=== PATIENT | female | born 1945 | race Caucasian/White ===

== ENCOUNTER 2016-10-14 05:38 | Inpatient (IN) ==
[2016-10-07 11:50] LABS: Basophils # 0.1 10*3/uL (0.0-0.2); Basophils % 1.4 % (0.0-0.8); Eosinophils # 0.1 10*3/uL (0.0-0.87); Eosinophils % 2.6 % (0.00-10.9); Hematocrit 39.4 VOL% (35.7-47.0); Immature Granulocytes % 0.2 %; Immature Granulocytes Absolute 0.01 #; Lymphocytes # 1.5 10*3/uL (1.4-4.0); Mean Corpuscular Hemoglobin 30 PG (27-34); Mean Corpuscular Volume 90.8 FL (87-102); Mean Platelet Volume 10.1 FL (9.6-12.0); Monocytes # 0.5 10*3/uL (0.11-0.8); Monocytes % 9.3 % (1.7-12.7); Neutrophils # 2.9 10*3/uL (1.4-7.4); Neutrophils % 56.5 % (38.7-73.9); Platelet Count 253 T/CUMM (130-400); Red Blood Count 4.34 MC/CUMM (3.8-5.5); Red Cell Distribution Width 12.1 % (9.3-17.3)
[2016-10-07 11:51] LABS: Apearance,Urine CLEAR (Clear); Bilirubin,Urine Negative (Negative); Blood, Urine Negative (Negative); Glucose,Urine (UA) Negative (Negative); Ketones,Urine Negative (Negative); Nitrite,Urine Negative (Negative); Protein,Urine Negative; RBC,Urine <1 /HPF (0-4); Squamous Epithelial Cell,Urine Occasional /HPF (0-10); Transitional Epi Cells,Urine Occasional /HPF (<1); Urine Color Straw (Yellow); Urine Specific Gravity 1.003 (1.001-1.035); Urine Urobilinogen < 2.0 EU/DL (0.2-1.0); WBC,Urine 2 /HPF (0-6)
--- NOTE | 2016-10-07 11:58 | EKG Report ---
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
[2016-10-07 12:25] LABS: Albumin 3.7 G/DL (3.4-5.0); Bilirubin,Total 1.1 MG/DL (0.2-1.0); Calcium 8.9 MG/DL (8.5-10.1); Osmolality,Calculated 271.8 MOS/KG (273-304); Total Protein 7.8 G/DL (6.4-8.3)
[2016-10-07 12:30] LABS: PT Patient Result 10.2 SECS; Partial Thromboplastin Time 25.7 SECS (0-40)
--- NOTE | 2016-10-07 13:56 | XRay Report ---
2 view chest. Indication: Respiratory preoperative. The heart is normal in size. The pulmonary vasculature is normal. Calcified granuloma in the right upper lung field. No pneumothorax. No pleural effusion. Exaggerated kyphosis of the thoracic spine. Stable anterior wedging of mid thoracic vertebra. Degenerative changes of the spinal column and shoulders. Impression: No acute abnormality. PROCEDURE INTERPRETED AT [facility] DEPARTMENT OF RADIOLOGY Final Report Signed by: Dr. Shannon Gilman
[2016-10-14] MEDS ORDERED: VANCOMYCIN INJ 1,000 MG in SODIUM CHLORIDE 0.9% 250 ML IV ONE ×2 (06:00→21:30)
[2016-10-14] MEDS ORDERED: DIAZEPAM 5 MG TABLET PO ONE (06:52)
[2016-10-14] MEDS ORDERED: ceFAZolin 1,000 MG VIAL ONE (07:22)
[2016-10-14] MEDS ORDERED: VANCOMYCIN 1,000 MG VIAL ONE (07:22)
[2016-10-14] MEDS ORDERED: DIAZEPAM 5 MG TABLET ONE (07:23)
[2016-10-14] MEDS ORDERED: SODIUM CHLORIDE 0.9% 100 ML IV ONE (07:23)
[2016-10-14] MEDS: LACTATED RINGERS 1,000 ML IV SCH ×4 (08:25→21:22)
--- NOTE | 2016-10-14 08:54 | History and Physical Update ---
History and Physical Update - History and Physical H&P was reviewed, the patient examined and there: are no changes in the patients condition since last H&P was completed.
[2016-10-14] MEDS ORDERED: KETOROLAC 30 MG/1 ML VIAL ONE (09:10)
[2016-10-14] MEDS ORDERED: PROPOFOL 200 MG/20 ML VIAL IV ONE (09:10)
[2016-10-14] MEDS ORDERED: LIDOCAINE 2% 5 ML VIAL ONE (09:10)
[2016-10-14] MEDS ORDERED: PHENYLEPHRINE 1 MG/10 ML SYRINGE IV ONE (09:10)
[2016-10-14] MEDS ORDERED: ONDANSETRON 4 MG/2 ML VIAL ONE (09:10)
[2016-10-14] MEDS ORDERED: TRANEXAMIC ACID 1,000 MG/10 ML VIAL IV ONE (09:31)
[2016-10-14] MEDS ORDERED: ROPIVACAINE 0.5% 30 ML VIAL ONE (10:41)
[2016-10-14] MEDS ORDERED: BACITRACIN OINT 0.9 GM PACK TOP ONE (10:49)
[2016-10-14] MEDS ORDERED: MORPHINE 2 MG/1 ML SYRINGE IV PRN ×2 (11:00)
[2016-10-14] MEDS ORDERED: oxyCODONE IR 5 MG TABLET PO PRN (11:00)
[2016-10-14] MEDS ORDERED: diphenhydrAMINE CAP 25 MG CAPSULE PO PRN (11:00)
[2016-10-14] MEDS ORDERED: MAGNESIUM HYDROXIDE SUSP 30 ML UDCUP PO PRN (11:00)
--- NOTE | 2016-10-14 11:04 | Operative Note ---
Date of procedure: 10/14/16 Procedure: DIAGNOSIS: Left knee primary osteoarthrosis PROCEDURE: Left total knee arthroplasty (cpt #93901) SURGEON: Khurram FRIT COATER: Jenifer ANESTHESIA: Spinal with a postoperative adductor canal block PROCEDURE and FINDINGS: After adequate was induced, the patient's knee was prepped and draped in the usual sterile fashion. The limb was exsanguinated with Esmarch. Tourniquet was inflated to 300 mmHg. A median parapatellar approach was made. Femur was cut using an intramedullary guide and a 4 in 1 cutting jig in 5 degrees of valgus. ACL and menisci were excised. Tibia was cut using intramedullary guide. Patella was cut using freehand technique. Components were trialed. Tibial fin was prepared. Components are cemented in place using Palacos cement and modern cementing techniques. Cement was removed. A 1/8 inch Hemovac drain was placed. The knee was well-balanced and full range of motion with central tracking patella. Deep layers closed with 0-0 Vicryl. Superficial layers were closed with 2-0 and 3-0 Vicryl. Skin was approximated with corrine. Bacitracin and a sterile dressing was applied. Patient was transferred to recovery. A postoperative adductor canal block is anticipated. COMPONENTS: The [employer] Persona system was used. 9 CR femur, F natural tibia, 10 mm liner, 32 mm patella TOURNIQUET TIME: 33 minutes Surgeon / Physician: Berhane Paulson Jr. Results - Labs CBC & BMP: 10/07/16 11:36 10/07/16 11:36 Discharge Plan - Discharge Medications No Action Levothyroxine Tab [Synthroid Tab] 75 mcg PO DAILY@0700 Atorvastatin [Lipitor] 1 tablet PO BEDTIME Multivitamin [One Daily Multivitamin] 1 tablet PO DAILY Cholecalciferol (Vitamin D3) [Vitamin D3] 1 tablet PO DAILY Fluticasone 50 Mcg Nasal [place] [Flonase Nasal [place]] 2 spray BOTH NARES DAILY Aspirin [Ecotrin] 81 mg PO BEDTIME Duloxetine HCl [Cymbalta] 60 mg PO DAILY Losartan Potassium [Cozaar] 50 mg PO BID Calcium (Carb)/Vit D 600-400 [Caltrate 600 + D] 1 tablet PO DAILY cycloSPORINE OPH EMUL [Restasis] 1 drop BOTH EYES Q12HR Cetirizine HCl [ZyrTEC Cap] 10 mg PO DIRECTED Cyclobenzaprine [Flexeril] 5 mg PO BEDTIME Folic Acid 0.8 mg PO DAILY Etanercept [Enbrel] 60 mg SUBCUT Q7DAY - Follow Up or Referral - Forms/Instructions
[2016-10-14] MEDS ORDERED: MIDAZOLAM 2 MG/2 ML VIAL ONE (11:15)
[2016-10-14] MEDS ORDERED: fentaNYL 100 MCG/2 ML VIAL ONE (11:16)
[2016-10-14] MEDS ORDERED: NEOSTIGMINE 10 MG/10 ML VIAL ONE (11:16)
[2016-10-14] MEDS ORDERED: ACETAMINOPHEN 1,000 MG/100 ML VIAL IV ONE (11:16)
--- NOTE | 2016-10-14 12:16 | XRay Report ---
XR knee 2V LT Indication: Joint replacement (left knee) Comparison: No relevant comparison Technique: Frontal and lateral views of the left knee Findings: Status post total left knee arthroplasty. No evidence of immediate hardware failure. Superficial skin corrine and surgical drain/s overlie the knee. Subcutaneous and joint space air noted which is likely postoperative. IMPRESSION: Status post total left knee arthroplasty. PROCEDURE INTERPRETED AT [facility] DEPARTMENT OF RADIOLOGY Final Report Signed by: Dr Landon Williamson
[2016-10-14] MEDS: KETOROLAC 15 MG/1 ML VIAL IV SCH ×2 (14:46→19:10)
--- NOTE | 2016-10-14 15:30 | Cardiology Consult Note ---
Denver Quigley Vanessa, RN, am scribing for, and in the presence of, Bob Silva MD 15:29. Assessment and Plan - Time spent with patient Time spent with patient: Greater than 30 minutes (1) Status post left knee replacement Status: Acute Assessment and plan: Status post left knee right replacement per Dr. Paulson this morning. She is doing well immediately postoperatively. Current Visit: Yes (2) Hx of coronary artery disease Status: Chronic Assessment and plan: Percutaneous coronary intervention of left anterior descending artery with stent placement in October 2009. Clinically, she is doing well from a cardiac standpoint. Current Visit: Yes (3) Hypertension Status: Chronic Assessment and plan: Fairly well controlled at this time. Antihypertensives have been continued perioperatively. Current Visit: Yes (4) Dyslipidemia Status: Chronic Assessment and plan: Atorvastin is tolerable, and statin has been continued. Current Visit: Yes (5) Carotid artery disease Status: Chronic Assessment and plan: Per previous carotid ultrasound, patient with known history of bilateral carotid artery stenosis less than 50%. She is clinically asymptomatic. Current Visit: Yes Qualifiers: Laterality: bilateral Qualified Code(s): I77.9 - Disorder of arteries and arterioles, unspecified (6) Hypothyroidism Status: Chronic Assessment and plan: Thyroid supplement has been continued. Current Visit: Yes History of Present Illness - Data of Consult Patient: known to practice within the last 3 years Consult date: 10/14/16 Requesting Physician: Berhane Paulson Jr. 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 Daniel is a 71 year old white female with risk factors significant for: hypertension, dyslipidemia, previous personal history of coronary artery disease. Patient has never smoked. Previous percutaneous coronary intervention with stent placement of left anterior descending artery in October 2009. Past medical history includes hypothyroidism, bilateral carotid stenosis, and Raynaud 's syndrome. Last seen by Dr. Valverde in clinic on September 10. Patient had multiple complaints of at time of visit, but they were all noncardiac. Noted to have past statin intolerance and cough while on CHAD inhibitor. Most recent myocardial perfusion March 2016 showing small fixed perfusion abnormality of mild intensity in the apical segment but no acute ischemia, EKG changes, and was low risk for future cardiovascular events. Will think left ventricle with normal global function and ejection fraction 55%. EKG with normal sinus rhythm. She presented to [facility] earlier this morning for planned total left knee replacement. Procedure was uneventful, and cardiology has now been consulted for perioperative management. Patient seen and examined. She is still slightly drowsy from anesthesia, but pleasant and in no acute distress. Denies chest pain, shortness of breath, or other anginal complaint. Reports her Cozaar 100 mg dosage was adjusted to 50 mg twice daily during her last visit with Dr. Valverde, and she feels much less fatigued. She is not experiencing a significant amount of pain. Biggest complaint is of some hiccups she is having right now. BP 131/74, pulse regular. Current Medications Acetaminophen (Tylenol Tab) 1,000 mg PO Q6H DIANELYS Stop: 10/15/16 09:02 Hydrocodone Bitart/Acetaminophen ([place] 7.5-325) 1 tablet PO Q4H PRN PRN Reason: Pain Moderate (4-7) Hydrocodone Bitart/Acetaminophen ([place] 7.5-325) 2 tablet PO Q4H PRN PRN Reason: Moderate Pain unrelieved by 1 Atorvastatin Calcium (Lipitor) 20 mg PO BEDTIME [facility] Calcium/Vitamin D (Caltrate 600 + D) 1 tablet PO DAILY DIANELYS Celecoxib (Celebrex) 200 mg PO DAILY [facility] Cetirizine HCl (Zyrtec Tab) 10 mg PO DAILY PRN PRN Reason: ALLERGIES Cholecalciferol (Vitamin D3) 1,000 unit PO DAILY [facility] Cyclobenzaprine HCl (Flexeril) 5 mg PO BEDTIME [facility] Cyclosporine (Restasis) 1 drop BOTH EYES Q12HR DIAN[facility] Diphenhydramine HCl (Benadryl Cap) 25 mg PO Q6H PRN PRN Reason: Itching Docusate Sodium (Colace Cap) 100 mg PO BID [facility] Duloxetine HCl (Cymbalta) 60 mg PO DAILY [facility] Fluticasone Propionate (Flonase) 2 spray BOTH NARES DAILY [facility] Folic Acid () 0.8 mg PO DAILY DIAN[facility] Fondaparinux (Arixtra) 2.5 mg SUBCUT Q24H [facility] Cefazolin Sodium 1,000 mg/ (Sodium Chloride) 100 mls @ 200 mls/hr IV Q8H DIANELYS Stop: 10/15/16 02:29 Lactated Ringer's (Lr) 1,000 mls @ 100 mls/hr IV .Q10H [facility] Vancomycin HCl 1,000 mg/ (Sodium Chloride) 250 mls @ 250 mls/hr IV ONCE ONE Stop: 10/14/16 22:29 Iron/Multivitamins/Folic Acid (Centrum Tab) 1 tablet PO DAILY [facility] Ketorolac Tromethamine (Toradol Inj) 15 mg IV Q6H DIAN[facility] Stop: 10/15/16 06:41 Levothyroxine Sodium (Synthroid Tab) 75 mcg PO DAILY@0700 [facility] Losartan Potassium (Cozaar) 50 mg PO BID [facility] Magnesium Hydroxide (Milk Of Magnesia) 30 ml PO Q6H PRN PRN Reason: Constipation Morphine Sulfate () 2 mg IV Q3H PRN PRN Reason: Pain Severe (8-10) Morphine Sulfate () 4 mg IV Q3H PRN PRN Reason: Pain Severe (8-10) Ondansetron HCl (Zofran Inj) 4 mg IV Q4H PRN PRN Reason: Nausea/Vomiting Oxycodone HCl (Roxicodone) 10 mg PO Q4H PRN PRN Reason: Pain Moderate (4-7) Oxycodone HCl (Roxicodone) 5 mg PO Q4H PRN PRN Reason: Pain Mild (1-3) Zaleplon (Sonata) 10 mg PO BEDTIME PRN PRN Reason: Sleep CC: Berhane Paulson Jr., - Home Medications and Allergies Home Medications: Home Medications Medication Instructions Recorded Confirmed Type Aspirin [Ecotrin] 81 mg PO BEDTIME 10/07/16 10/14/16 History Atorvastatin [Lipitor] 20 mg PO BEDTIME 10/07/16 10/14/16 History Calcium (Carb)/Vit D 600-400 1 tablet PO DAILY 10/07/16 10/14/16 History [Caltrate 600 + D] Cetirizine HCl [ZyrTEC Cap] 10 mg PO DAILY PRN 10/07/16 10/14/16 History Cholecalciferol (Vitamin D3) 1,000 unit PO DAILY 10/07/16 10/14/16 History [Vitamin D3] Cyclobenzaprine [Flexeril] 5 mg PO BEDTIME 10/07/16 10/14/16 History Duloxetine HCl [Cymbalta] 60 mg PO DAILY 10/07/16 10/14/16 History Fluticasone 50 Mcg Nasal [place] 2 spray BOTH NARES DAILY 10/07/16 10/14/16 History [Flonase Nasal [place]] Folic Acid 0.8 mg PO DAILY 10/07/16 10/14/16 History Levothyroxine Tab [Synthroid Tab] 75 mcg PO DAILY@0700 10/07/16 10/14/16 History Losartan Potassium [Cozaar] 50 mg PO BID 10/07/16 10/14/16 History Multivitamin [One Daily 1 tablet PO DAILY 10/07/16 10/14/16 History Multivitamin] cycloSPORINE OPH EMUL [Restasis] 1 drop BOTH EYES Q12HR 10/07/16 10/14/16 History Etanercept [Enbrel] 60 mg SUBCUT Q7DAY 10/14/16 10/14/16 History Allergies/Adverse Reactions: Allergies Allergy/AdvReac Type Severity Reaction Status Date / Time doxycycline Allergy Severe RASH Verified 10/14/16 07:41 animals Allergy Severe Sneezing Uncoded 10/14/16 07:41 trees grass Allergy Severe Sneezing Uncoded 10/14/16 07:41 - Constitutional Constitutional: Absent: anorexia, chills, fatigue, fever(s), lethargy, weakness , weight gain, weight loss - EENT Eyes: Absent: blurry vision, loss of vision Ears: Absent: decreased hearing Nose, mouth and throat: Present: sinus pressure. Absent: dysphagia, epistaxis, lip swelling, nasal congestion, sore throat, throat swelling, tongue swelling - Cardiovascular Cardiovascular: Absent: chest pain at rest, chest pain with activity, diaphoresis, dyspnea, dyspnea on exertion, edema, radiating jaw, neck or arm pain, lightheadedness, orthopnea, palpitations, PND - Respiratory Respiratory: Absent: cough, dyspnea, hemoptysis, dyspnea on exertion, wheezing - Gastrointestinal Gastrointestinal: Absent: abdominal pain, bloating, constipation, diarrhea, dysphagia, melena, nausea, vomiting - Genitourinary Genitourinary: Absent: dysuria, flank pain, hematuria - Musculoskeletal Musculoskeletal: Present: arthralgias, limited range of motion, myalgias. Absent: back pain - Neurological Neurological: Absent: abnormal gait, abnormal speech, confusion, dizziness, syncope, tremor(s) - Psychiatric Psychiatric: Absent: anxiety, depression - Endocrine Endocrine: Absent: cold intolerance, heat intolerance - Hematologic/Lymphatic Hematologic/Lymphatic: Absent: easy bleeding, easy bruising Medical,Surgical,& Family Hx - Medical History Cardio: History of: CAD, Hypertension No history of: Cardiac Dysrhythmia, CHF, MT, Pacemaker, PVD Comment Only: Cardiovascular Problems (CAROTID BRUITT) Psychological: History of: Depression HEENT: History of: Eye Problem (GLASSES), Glaucoma Endocrine: History of: Dyslipidemia, Thyroid Disorder No history of: Diabetes Mellitus (IDDM), Diabetes Mellitus (NIDDM) Respiratory: No history of: COPD, Obstructive Sleep Apnea, Pulmonary Hypertension Comment Only: Respiratory Problems (SPOT LUNG CHRONIC COUGH DUE TO ALLERGIES) Renal: No history of: Renal Failure Gastrointestinal: No history of: GERD, Hepatitis Musculoskeletal: Comment Only: Musculoskeletal Problems (ARTHRITIS OSTEOPENEA) Hematology: No history of: Anemia, Blood Transfusion Reaction Other: History of: Miscellaneous Medical Problems (Raynaud's disease) - Surgical History Cardiac Surgeries: Sugical HX of: Cardiac Catheterization (previous PCI - Dr. Kunz) Patient Denies: Internal Defibrillator HEENT Surgeries: Surgical HX of: Tonsilectomy & Adenoidectomy Reproductive Surgeries: Surgical HX of;: Dilation and Curettage Orthopedic Surgeries: Surgical HX of;: Total Knee Replacement (LEFT) - Family History Family History: Reports;: Family Diabetes (SON), Family Heart Disease (DAD), Family Hypertension (DAD), Family Stroke (MOM GP) - Social History Smoking Status: Never smoker Frequency of Alcohol Use: None Type of Drug Use: None Physical Examination Vital Signs Temp Pulse Resp BP Pulse Ox 97.4 F L 73 16 132/67 97 10/14/16 08:36 10/14/16 08:36 10/14/16 08:36 10/14/16 08:36 10/14/16 08:36 General: Present: No Apparent Distress HEENT: Present: PERRL, Normocephaly, Mucus Membranes Moist Neck: Present: Supple Neck, Midline Trachea, No Bruit Cardiac: Present: Reg Rate and Rhythm, No Murmur Lungs: Present: Clear Ascult./Percussion, Oxygen, No Wheeze, Rales, Rhonchi Neuro: Present: Weakness, Grossly Intact. Absent: Tingling, Resting Tremor, Essential Tremor Abdomen: Present: Soft, Active Bowel Sounds. Absent: Ascites, Tender, Firm Skin: Present: Clear. Absent: Rash, Suspicious Lesions Extremities: Present: No Clubbing, No Cyanosis, No Edema, Normal Upper Extr. Pulses (2+ bilaterally), Normal Lower Extr. Pulses (2+ bilaterally), Capillary Refill (normal), Other (left lower extremity with dry/intact surgical dressing; cooling mechanism in place.) Result/EKG - Labs CBC & BMP: 10/07/16 11:36 10/07/16 11:36 Lab Results: I have reviewed the past 24 hour labs Labs: Laboratory Results - last 24 hr 10/14/16 06:25 Blood Type O POSITIVE Antibody Screen Negative - EKG EKG results: interpreted by me, no acute changes EKG shows: sinus rhythm I, Bob Silva MD, personally performed the services described in this documentation, ascribed by Becky Goff RN in my presence, and it is both accurate and complete [id number] .
--- NOTE | 2016-10-14 16:24 | Anesthesia Post-Op ---
Anesthesia Post OP - Post Ansesthetic Evaluation Patient seen in post op: Yes Resp: within normal limits CV: within normal limits Mental: within normal limits Temp: within normal limits [id number]-[id number]: within normal limits Nausea and Vomiting: within normal limits Pain: within normal limits
[2016-10-14] MEDS: ACETAMINOPHEN 500 MG TABLET PO SCH ×2 (16:47→21:18)
--- NOTE | 2016-10-14 18:06 | Orthopedic Progress Note ---
Orthopedics - Subjective Interval history: Mrs. Daniel is relatively comfortable. The block appears only worked about 3 hours. Dressing is clean, dry and intact. Left lower extremities neurovascularly unchanged. Plan: Continue with postoperative orders. Exam - Constitutional Vitals: Period Temp Pulse Resp BP Sys/Luke Pulse Ox Last 24 Hr 97.4 F-97.8 F 68-81 16-20 93-138/51-85 94-100 Results - Labs CBC & BMP: 10/07/16 11:36 10/07/16 11:36
[2016-10-14] MEDS ORDERED: ZALEPLON 5 MG CAPSULE PO PRN (21:00)
[2016-10-14] MEDS: oxyCODONE IR 5 MG TABLET PO PRN (21:17)
[2016-10-14] MEDS: DOCUSATE SODIUM 100 MG CAPSULE PO SCH (21:18)
[2016-10-14] MEDS: LOSARTAN 50 MG TABLET PO SCH (21:18)
[2016-10-14] MEDS: ATORVASTATIN 20 MG TABLET PO SCH (21:18)
[2016-10-14] MEDS: cycloSPORINE OPH EMUL 1 VIAL BOTH EYES SCH (21:19)
[2016-10-14] MEDS: CYCLOBENZAPRINE 10 MG TABLET PO SCH (21:19)
[2016-10-15] MEDS: KETOROLAC 15 MG/1 ML VIAL IV SCH ×2 (00:42→06:40)
[2016-10-15] MEDS: oxyCODONE IR 5 MG TABLET PO PRN ×4 (02:43→16:19)
[2016-10-15] MEDS: ACETAMINOPHEN 500 MG TABLET PO SCH ×2 (02:44→08:45)
[2016-10-15 05:13] LABS: Basophils % 0.5 % (0.0-0.8); Eosinophils # 0.3 10*3/uL (0.0-0.87); Eosinophils % 3.5 % (0.00-10.9); Hematocrit 29.7 VOL% (35.7-47.0); Hemoglobin 9.7 GM/DL (12.0-16.0); Immature Granulocytes % 0.4 %; Immature Granulocytes Absolute 0.03 #; Lymphocytes # 1.6 10*3/uL (1.4-4.0); Lymphocytes % 20.3 % (21.3-54.2); Mean Corpuscular HGB Conc 32.7 GM/DL (32-36); Mean Corpuscular Hemoglobin 30 PG (27-34); Mean Corpuscular Volume 91.7 FL (87-102); Mean Platelet Volume 10.1 FL (9.6-12.0); Monocytes # 0.8 10*3/uL (0.11-0.8); Monocytes % 10.7 % (1.7-12.7); Neutrophils # 4.9 10*3/uL (1.4-7.4); Neutrophils % 64.6 % (38.7-73.9); Platelet Count 185 T/CUMM (130-400); Red Blood Count 3.24 MC/CUMM (3.8-5.5); Red Cell Distribution Width 12.3 % (9.3-17.3); White Blood Count 7.7 T/CUMM (4-12)
[2016-10-15 05:50] LABS: Calcium 7.7 MG/DL (8.5-10.1); Osmolality,Calculated 267.2 MOS/KG (273-304); Potassium 3.9 MMOL/L (3.5-5.1)
[2016-10-15] MEDS: LEVOTHYROXINE 75 MCG TABLET PO SCH (06:39)
--- NOTE | 2016-10-15 07:30 | Orthopedic Progress Note ---
Orthopedics - Subjective Interval history: Mrs Daniel slept poorly last night. Dressing dry. nv ok. Reassured patient that she should improve today. Routine day one instructions. Plan discharge home with . Exam - Constitutional Vitals: Period Temp Pulse Resp BP Sys/Luek Pulse Ox Last 24 Hr 97.4 F-98.3 F 68-84 16-20 93-138/51-85 94-100 Results - Labs CBC & BMP: 10/15/16 04:53 10/15/16 04:53
[2016-10-15] MEDS: LACTATED RINGERS 1,000 ML IV SCH (07:47)
[2016-10-15] MEDS: CALCIUM (CARBONATE)/VITAMIN D 600 MG-400 UNIT TABLET PO SCH (08:43)
[2016-10-15] MEDS: CHOLECALCIFEROL 1,000 UNIT TABLET PO SCH (08:43)
[2016-10-15] MEDS: DULoxetine 30 MG CAPSULE PO SCH (08:43)
[2016-10-15] MEDS: FOLIC ACID 0.4 MG TABLET PO SCH (08:43)
[2016-10-15] MEDS: MULTIVITAMIN (CENTRUM) TABLET PO SCH (08:44)
[2016-10-15] MEDS: LOSARTAN 50 MG TABLET PO SCH ×2 (08:44→20:31)
[2016-10-15] MEDS: DOCUSATE SODIUM 100 MG CAPSULE PO SCH ×2 (08:45→20:32)
[2016-10-15] MEDS: cycloSPORINE OPH EMUL 1 VIAL BOTH EYES SCH ×2 (08:46→20:32)
[2016-10-15] MEDS: FLUTICASONE 50 MCG NASAL SPRAY 16 GM BOTTLE BOTH NARES SCH (08:46)
[2016-10-15] MEDS: FONDAPARINUX 2.5 MG/0.5 ML SYRINGE SUBCUT SCH (08:46)
[2016-10-15] MEDS: ONDANSETRON 4 MG/2 ML VIAL IV PRN ×2 (08:52→16:20)
[2016-10-15] MEDS: CELECOXIB 200 MG CAPSULE PO SCH (12:00)
--- NOTE | 2016-10-15 13:57 | Cardiology Progress Note ---
Denver Quigley Vanessa, RN, am scribing for, and in the presence of, Bob Silva MD 13:57. Assessment and Plan - Time spent with patient Time spent with patient: Greater than 30 minutes (1) Status post left knee replacement Status: Acute Assessment and plan: POD #1 status post left knee right replacement per Dr. Paulson. Other than some nausea, patient continues to do well. Current Visit: Yes (2) Hx of coronary artery disease Status: Chronic Assessment and plan: Percutaneous coronary intervention of left anterior descending artery with stent placement in October 2009. Clinically, patient is doing well from cardiac standpoint. Current Visit: Yes (3) Hypertension Status: Chronic Assessment and plan: Fairly well controlled at this time. Continue antihypertensive medications. Current Visit: Yes (4) Dyslipidemia Status: Chronic Assessment and plan: History of statin intolerance. Currently takes atorvastatin, and this will continue. Current Visit: Yes (5) Carotid artery disease Status: Chronic Assessment and plan: Per previous carotid ultrasound, patient with known history of bilateral carotid artery stenosis less than 50%. She is not having any clinical symptoms. Current Visit: Yes Qualifiers: Laterality: bilateral Qualified Code(s): I77.9 - Disorder of arteries and arterioles, unspecified (6) Hypothyroidism Status: Chronic Assessment and plan: Thyroid supplement has been continued. Current Visit: Yes Cardiology - PN: Subj Interval history: PRIMARY CHAIRMAN CEO: DR. VALVERDE SUMMARY: Ms. Daniel is a 71 year old white female with risk factors significant for: hypertension, dyslipidemia, and personal history of coronary artery disease. Patient has never smoked. Previous percutaneous coronary intervention with stent placement of left anterior descending artery in October 2009. Past medical history includes hypothyroidism, bilateral carotid stenosis, and Raynaud's syndrome. Last seen by Dr. Valverde in clinic on September 10. Patient had multiple complaints of at time of visit, but they were all noncardiac. Noted to have past statin intolerance and cough while on CHAD inhibitor. Most recent myocardial perfusion March 2016 showing small fixed perfusion abnormality of mild intensity in the apical segment but no acute ischemia, EKG changes, and was low risk for future cardiovascular events. Will think left ventricle with normal global function and ejection fraction 55%. EKG with normal sinus rhythm. Patient presented to [facility] on the morning of October 14 for planned total left knee replacement. Cardiology was consulted for perioperative management. September UPDATE: Ms. Daniel is awake and alert this morning. No acute distress. Physical therapy is present assisting patient with range of motion exercises in bed. Patient reports she did not sleep well at all last night. She has not had any chest pain , shortness of breath, or other overt anginal complaint. Reports she did have some nausea earlier this morning but contributes this pain medications, restarting her Cymbala this morning, and increasing her activity level. Afebrile , vitals stable with systolic pressure ranging 120-135 mmHg. Post op H&H 9.7/ 29.7. K+ 3.9. Overall, from a cardiac standpoint, patient appears to be doing well. Current Medications Hydrocodone Bitart/Acetaminophen ([place] 7.5-325) 1 tablet PO Q4H PRN PRN Reason: Pain Moderate (4-7) Last Admin: 10/14/16 23:11 Dose: 1 tablet Hydrocodone Bitart/Acetaminophen ([place] 7.5-325) 2 tablet PO Q4H PRN PRN Reason: Moderate Pain unrelieved by 1 Atorvastatin Calcium (Lipitor) 20 mg PO BEDTIME [facility] Last Admin: 10/14/16 21:18 Dose: 20 mg Calcium/Vitamin D (Caltrate 600 + D) 1 tablet PO DAILY [facility] Last Admin: 10/15/16 08:43 Dose: 1 tablet Celecoxib (Celebrex) 200 mg PO DAILY [facility] Cetirizine HCl (Zyrtec Tab) 10 mg PO DAILY PRN PRN Reason: ALLERGIES Cholecalciferol (Vitamin D3) 1,000 unit PO DAILY [facility] Last Admin: 10/15/16 08:43 Dose: 1,000 unit Cyclobenzaprine HCl (Flexeril) 5 mg PO BEDTIME [facility] Last Admin: 10/14/16 21:19 Dose: 5 mg Cyclosporine (Restasis) 1 drop BOTH EYES Q12HR [facility] Last Admin: 10/15/16 08:46 Dose: 1 drop Diphenhydramine HCl (Benadryl Cap) 25 mg PO Q6H PRN PRN Reason: Itching Last Admin: 10/15/16 05:13 Dose: 25 mg Docusate Sodium (Colace Cap) 100 mg PO BID [facility] Last Admin: 10/15/16 08:45 Dose: 100 mg Duloxetine HCl (Cymbalta) 60 mg PO DAILY [facility] Last Admin: 10/15/16 08:43 Dose: 60 mg Fluticasone Propionate (Flonase) 2 spray BOTH NARES DAILY [facility] Last Admin: 10/15/16 08:46 Dose: 2 spray Folic Acid () 0.8 mg PO DAILY [facility] Last Admin: 10/15/16 08:43 Dose: 0.8 mg Fondaparinux (Arixtra) 2.5 mg SUBCUT Q24H [facility] Last Admin: 10/15/16 08:46 Dose: 2.5 mg Iron/Multivitamins/Folic Acid (Centrum Tab) 1 tablet PO DAILY [facility] Last Admin: 10/15/16 08:44 Dose: Not Given Levothyroxine Sodium (Synthroid Tab) 75 mcg PO DAILY@0700 [facility] Last Admin: 10/15/16 06:39 Dose: 75 mcg Losartan Potassium (Cozaar) 50 mg PO BID [facility] Last Admin: 10/15/16 08:44 Dose: 50 mg Magnesium Hydroxide (Milk Of Magnesia) 30 ml PO Q6H PRN PRN Reason: Constipation Morphine Sulfate () 2 mg IV Q3H PRN PRN Reason: Pain Severe (8-10) Morphine Sulfate () 4 mg IV Q3H PRN PRN Reason: Pain Severe (8-10) Ondansetron HCl (Zofran Inj) 4 mg IV Q4H PRN PRN Reason: Nausea/Vomiting Last Admin: 10/15/16 08:52 Dose: 4 mg Oxycodone HCl (Roxicodone) 10 mg PO Q4H PRN PRN Reason: Pain Moderate (4-7) Last Admin: 10/15/16 06:39 Dose: 10 mg Oxycodone HCl (Roxicodone) 5 mg PO Q4H PRN PRN Reason: Pain Mild (1-3) Zaleplon (Sonata) 10 mg PO BEDTIME PRN PRN Reason: Sleep Exam (Progress Note) - Constitutional Vitals: Period Temp Pulse Resp BP Sys/Luke Pulse Ox Last 24 Hr 97.5 F-98.3 F 68-84 16-20 93-138/51-85 94-100 Exam: General: Present: No Apparent Distress HEENT: Present: PERRL, Normocephaly, Mucus Membranes Moist Neck: Present: Supple Neck, Midline Trachea, No Bruit Cardiac: Present: Reg Rate and Rhythm, No Murmur Lungs: Present: Clear Ascult./Percussion, Oxygen, No Wheeze, Rales, Rhonchi Neuro: Present: Weakness, Grossly Intact. Absent: Tingling, Resting Tremor, Essential Tremor Abdomen: Present: Soft, Active Bowel Sounds. Absent: Ascites, Tender, Firm Skin: Present: Clear, warm, dry. Absent: Rash, Suspicious Lesions Extremities: Present: No Clubbing, No Cyanosis, No Edema, Normal Upper Extr. Pulses (2+ bilaterally), Normal Lower Extr. Pulses (2+ bilaterally), Capillary Refill (normal), Other (left knee with dry/intact surgical dressing) Result/EKG - Labs CBC & BMP: 10/15/16 04:53 10/15/16 04:53 Lab Results: I have reviewed the past 24 hour labs Labs: Laboratory Results - last 24 hr 10/15/16 10/15/16 04:53 04:53 WBC 7.7 RBC 3.24 L Hgb 9.7 L Hct 29.7 L MCV 91.7 MCH 30 MCHC 32.7 RDW 12.3 Plt Count 185 MPV 10.1 Neut % (Auto) 64.6 Lymph % (Auto) 20.3 L [place] % (Auto) 10.7 Eos % (Auto) 3.5 Baso % (Auto) 0.5 Neut # (Auto) 4.9 Lymph # (Auto) 1.6 [place] # (Auto) 0.8 Eos # (Auto) 0.3 Baso # (Auto) 0.0 Immature Gran % 0.4 Nucleated RBC % 0.0 Immature Gran # 0.03 Nucleated RBCs # 0.00 Sodium 134 L Potassium 3.9 Chloride 99 Carbon Dioxide 28 Anion Gap 10.9 BUN 9 Creatinine 0.60 GFR Calculation 99 BUN/Creatinine Ratio 15.00 Glucose 111 H Calculated Osmolality 267.2 L Calcium 7.7 L - EKG EKG results: interpreted by me, no acute changes EKG shows: sinus rhythm IShira Michael, MD, personally performed the services described in this documentation, ascribed by Becky Goff RN in my presence, and it is both accurate and complete 357 .
[2016-10-15] MEDS: CYCLOBENZAPRINE 10 MG TABLET PO SCH (20:31)
[2016-10-15] MEDS: ATORVASTATIN 20 MG TABLET PO SCH (20:31)
[2016-10-16] MEDS: CETIRIZINE 10 MG TABLET PO PRN (06:09)
[2016-10-16] MEDS: LEVOTHYROXINE 75 MCG TABLET PO SCH (06:10)
[2016-10-16 06:54] LABS: Basophils % 0.3 % (0.0-0.8); Eosinophils # 0.1 10*3/uL (0.0-0.87); Eosinophils % 1.4 % (0.00-10.9); Hematocrit 27.8 VOL% (35.7-47.0); Hemoglobin 9.2 GM/DL (12.0-16.0); Immature Granulocytes % 0.4 %; Immature Granulocytes Absolute 0.03 #; Lymphocytes # 1.3 10*3/uL (1.4-4.0); Lymphocytes % 16.3 % (21.3-54.2); Mean Corpuscular HGB Conc 33.1 GM/DL (32-36); Mean Corpuscular Hemoglobin 30 PG (27-34); Mean Platelet Volume 10.2 FL (9.6-12.0); Monocytes # 0.8 10*3/uL (0.11-0.8); Monocytes % 9.5 % (1.7-12.7); Neutrophils # 5.7 10*3/uL (1.4-7.4); Neutrophils % 72.1 % (38.7-73.9); Platelet Count 176 T/CUMM (130-400); Red Blood Count 3.09 MC/CUMM (3.8-5.5); Red Cell Distribution Width 12.3 % (9.3-17.3); White Blood Count 7.9 T/CUMM (4-12)
--- NOTE | 2016-10-16 07:25 | Orthopedic Progress Note ---
Orthopedics - Subjective Interval history: Mrs. Daniel is feeling better today. She was able to walk in the [place] short distance. Dressings clean, dry and intact. Right lower extremity neurovascular change. Plan: Continue with physical therapy. Plan discharge home tomorrow. Exam - Constitutional Vitals: Period Temp Pulse Resp BP Sys/Luke Pulse Ox Last 24 Hr 97.3 F-99.8 F 76-89 16-20 115-145/55-74 92-98 Results - Labs CBC & BMP: 10/16/16 06:31 10/15/16 04:53 Specialty Discharge - Follow Up or Referrals Follow up with: Berhane Paulson Jr., MD [Physician] -
[2016-10-16] MEDS: FONDAPARINUX 2.5 MG/0.5 ML SYRINGE SUBCUT SCH (08:21)
[2016-10-16] MEDS: MULTIVITAMIN (CENTRUM) TABLET PO SCH (08:22)
[2016-10-16] MEDS: DULoxetine 30 MG CAPSULE PO SCH (08:22)
[2016-10-16] MEDS: FOLIC ACID 0.4 MG TABLET PO SCH (08:22)
[2016-10-16] MEDS: DOCUSATE SODIUM 100 MG CAPSULE PO SCH ×2 (08:22→20:55)
[2016-10-16] MEDS: CELECOXIB 200 MG CAPSULE PO SCH (08:22)
[2016-10-16] MEDS: CALCIUM (CARBONATE)/VITAMIN D 600 MG-400 UNIT TABLET PO SCH (08:23)
[2016-10-16] MEDS: cycloSPORINE OPH EMUL 1 VIAL BOTH EYES SCH ×2 (08:23→20:57)
[2016-10-16] MEDS: CHOLECALCIFEROL 1,000 UNIT TABLET PO SCH (08:23)
[2016-10-16] MEDS: LOSARTAN 50 MG TABLET PO SCH ×2 (08:23→20:55)
[2016-10-16] MEDS: FLUTICASONE 50 MCG NASAL SPRAY 16 GM BOTTLE BOTH NARES SCH (08:23)
--- NOTE | 2016-10-16 12:18 | Pathology Report from [facility] ---
[facility] [place] : [id number] PATIENT NAME : Chanda Daniel ORDERING DR : NIKOLAY ARRIETA MD CLINICAL HX: Left knee osteoarthritis POST-OP DX: Same SPECIMEN INFO: Bone left knee GROSS DESCRIPTION: Received in formalin labeled CHANDA DANIEL & BONE LT KNEE are fragments of bone, cartilage and tissue measuring 12.2 x 16.8 cm. The articular surfaces are focally degenerative with an area of subchondral eburnation measuring 2.2 cm and areas of cartilage lipping. Collection Systems Modeler sections are submitted in one cassette following decalcification. DIAGNOSIS FOR CHANDA DANIEL: BONE LEFT KNEE, TOTAL REPLACEMENT: Osteoarthritis. COLLECTED DATE: 10/14/2016 [facility] [place] DATE: 10/16/2016 ELECTRONICALLY SIGNED BY: Kushal Alamo M.D. 10/16/2016 - 9:58:04 ANDREW
--- NOTE | 2016-10-16 14:16 | Cardiology Progress Note ---
I, Becky Goff RN, am scribing for, and in the presence of, Bob Silva MD 14:16. Assessment and Plan - Time spent with patient Time spent with patient: Greater than 30 minutes (1) Status post left knee replacement Status: Acute Assessment and plan: POD #2 status post left knee right replacement per Dr. Paulson. Nausea is much improved today. Current Visit: Yes (2) Hx of coronary artery disease Status: Chronic Assessment and plan: Percutaneous coronary intervention of left anterior descending artery with stent placement in October 2009. Clinically, patient is doing well from cardiac standpoint. I am going to drop off her case at this time. Please call me if I can be of further assistance. Current Visit: Yes (3) Hypertension Status: Chronic Assessment and plan: Fairly well controlled at this time. Continue antihypertensive medications. Current Visit: Yes (4) Dyslipidemia Status: Chronic Assessment and plan: History of statin intolerance. Currently takes atorvastatin, and this will continue. Current Visit: Yes (5) Carotid artery disease Status: Chronic Assessment and plan: Per previous carotid ultrasound, patient with known history of bilateral carotid artery stenosis less than 50%. She is not having any clinical symptoms. Current Visit: Yes Qualifiers: Laterality: bilateral Qualified Code(s): I77.9 - Disorder of arteries and arterioles, unspecified (6) Hypothyroidism Status: Chronic Assessment and plan: Thyroid supplement has been continued. Current Visit: Yes Cardiology - PN: Subj Interval history: PRIMARY STEM SHAPER: DR. VALVERDE SUMMARY: Ms. Daniel is a 71 year old white female with risk factors significant for: hypertension, dyslipidemia, and personal history of coronary artery disease. Patient has never smoked. Previous percutaneous coronary intervention with stent placement of left anterior descending artery in October 2009. Past medical history includes hypothyroidism, bilateral carotid stenosis, and Raynaud's syndrome. Last seen by Dr. Valverde in clinic on September 10. Patient had multiple complaints of at time of visit, but they were all noncardiac. Noted to have past statin intolerance and cough while on CHAD inhibitor. Most recent myocardial perfusion March 2016 showing small fixed perfusion abnormality of mild intensity in the apical segment but no acute ischemia, EKG changes, and was low risk for future cardiovascular events. Will think left ventricle with normal global function and ejection fraction 55%. EKG with normal sinus rhythm. Patient presented to [facility] on the morning of October 14 for planned total left knee replacement. Cardiology was consulted for perioperative management. September UPDATE: Patient is now post operative day #2 status post left knee replacement. She had a significant amount of nausea throughout the day yesterday, but reports she is feeling much better today and is currently eating an apple, drinking willie lakia. Pain related to surgical procedure relatively well controlled at this time. Patient reports she ambulated in the hallways with physical therapy yesterday, and she did not have any exertional chest pain, dyspnea, or anginal equivalent. Low-grade temp yesterday up to 99.8F is improved today and currently 98.2. Vitals otherwise stable with systolic pressure no greater than 145 mmHg. Plan is to continue physical therapy today and discharge home tomorrow with home health. Current Medications Hydrocodone Bitart/Acetaminophen ([place] 7.5-325) 1 tablet PO Q4H PRN PRN Reason: Pain Moderate (4-7) Last Admin: 10/16/16 02:05 Dose: 1 tablet Hydrocodone Bitart/Acetaminophen ([place] 7.5-325) 2 tablet PO Q4H PRN PRN Reason: Moderate Pain unrelieved by 1 Atorvastatin Calcium (Lipitor) 20 mg PO BEDTIME [facility] Last Admin: 10/15/16 20:31 Dose: 20 mg Calcium/Vitamin D (Caltrate 600 + D) 1 tablet PO DAILY [facility] Last Admin: 10/15/16 08:43 Dose: 1 tablet Celecoxib (Celebrex) 200 mg PO DAILY [facility] Last Admin: 10/15/16 12:00 Dose: 200 mg Cetirizine HCl (Zyrtec Tab) 10 mg PO DAILY PRN PRN Reason: ALLERGIES Last Admin: 10/16/16 06:09 Dose: 10 mg Cholecalciferol (Vitamin D3) 1,000 unit PO DAILY [facility] Last Admin: 10/15/16 08:43 Dose: 1,000 unit Cyclobenzaprine HCl (Flexeril) 5 mg PO BEDTIME [facility] Last Admin: 10/15/16 20:31 Dose: 5 mg Cyclosporine (Restasis) 1 drop BOTH EYES Q12HR [facility] Last Admin: 10/15/16 20:32 Dose: 1 drop Diphenhydramine HCl (Benadryl Cap) 25 mg PO Q6H PRN PRN Reason: Itching Last Admin: 10/15/16 05:13 Dose: 25 mg Docusate Sodium (Colace Cap) 100 mg PO BID [facility] Last Admin: 10/15/16 20:32 Dose: 100 mg Duloxetine HCl (Cymbalta) 60 mg PO DAILY [facility] Last Admin: 10/15/16 08:43 Dose: 60 mg Fluticasone Propionate (Flonase) 2 spray BOTH NARES DAILY [facility] Last Admin: 10/15/16 08:46 Dose: 2 spray Folic Acid () 0.8 mg PO DAILY [facility] Last Admin: 10/15/16 08:43 Dose: 0.8 mg Fondaparinux (Arixtra) 2.5 mg SUBCUT Q24H [facility] Last Admin: 10/15/16 08:46 Dose: 2.5 mg Iron/Multivitamins/Folic Acid (Centrum Tab) 1 tablet PO DAILY [facility] Last Admin: 10/15/16 08:44 Dose: Not Given Levothyroxine Sodium (Synthroid Tab) 75 mcg PO DAILY@0700 [facility] Last Admin: 10/16/16 06:10 Dose: 75 mcg Losartan Potassium (Cozaar) 50 mg PO BID [facility] Last Admin: 10/15/16 20:31 Dose: 50 mg Magnesium Hydroxide (Milk Of Magnesia) 30 ml PO Q6H PRN PRN Reason: Constipation Morphine Sulfate () 2 mg IV Q3H PRN PRN Reason: Pain Severe (8-10) Morphine Sulfate () 4 mg IV Q3H PRN PRN Reason: Pain Severe (8-10) Ondansetron HCl (Zofran Inj) 4 mg IV Q4H PRN PRN Reason: Nausea/Vomiting Last Admin: 10/15/16 16:20 Dose: 4 mg Oxycodone HCl (Roxicodone) 10 mg PO Q4H PRN PRN Reason: Pain Moderate (4-7) Last Admin: 10/15/16 16:19 Dose: 10 mg Oxycodone HCl (Roxicodone) 5 mg PO Q4H PRN PRN Reason: Pain Mild (1-3) Zaleplon (Sonata) 10 mg PO BEDTIME PRN PRN Reason: Sleep Last Admin: 10/15/16 20:32 Dose: 10 mg Exam (Progress Note) - Constitutional Vitals: Period Temp Pulse Resp BP Sys/Luke Pulse Ox Last 24 Hr 97.3 F-99.8 F 76-89 16-20 115-145/50-74 92-98 Exam: General: Present: No Apparent Distress HEENT: Present: PERRL, Normocephaly, Mucus Membranes Moist Neck: Present: Supple Neck, Midline Trachea, No Bruit Cardiac: Present: Reg Rate and Rhythm, No Murmur Lungs: Present: Clear Ascult./Percussion, Oxygen, No Wheeze, Rales, Rhonchi Neuro: Present: Weakness, Grossly Intact. Absent: Tingling, Resting Tremor, Essential Tremor Abdomen: Present: Soft, Active Bowel Sounds. Absent: Ascites, Tender, Firm Skin: Present: Clear, warm, dry. Absent: Rash, Suspicious Lesions. Other: Skin color improved today. Extremities: Present: No Clubbing, No Cyanosis, No Edema, Normal Upper Extr. Pulses (2+ bilaterally), Normal Lower Extr. Pulses (2+ bilaterally), Capillary Refill (normal), Other (left knee with dry/intact surgical dressing) Result/EKG - Labs CBC & BMP: 10/16/16 06:31 10/15/16 04:53 Lab Results: I have reviewed the past 24 hour labs Labs: Laboratory Results - last 24 hr 10/16/16 06:31 WBC 7.9 RBC 3.09 L Hgb 9.2 L Hct 27.8 L MCV 90.0 MCH 30 MCHC 33.1 RDW 12.3 Plt Count 176 MPV 10.2 Neut % (Auto) 72.1 Lymph % (Auto) 16.3 L [place] % (Auto) 9.5 Eos % (Auto) 1.4 Baso % (Auto) 0.3 Neut # (Auto) 5.7 Lymph # (Auto) 1.3 L [place] # (Auto) 0.8 Eos # (Auto) 0.1 Baso # (Auto) 0.0 Immature Gran % 0.4 Nucleated RBC % 0.0 Immature Gran # 0.03 Nucleated RBCs # 0.00 - EKG EKG results: interpreted by me, no acute changes Specialty Discharge - Follow Up or Referrals Follow up with: Berhane Paulson Jr., MD [Physician] - Shira Quigley Michael, MD, personally performed the services described in this documentation, ascribed by Becky Goff RN in my presence, and it is both accurate and complete 416 .
[2016-10-16] MEDS: CYCLOBENZAPRINE 10 MG TABLET PO SCH (20:56)
[2016-10-16] MEDS: ATORVASTATIN 20 MG TABLET PO SCH (20:57)
[2016-10-17 04:51] LABS: Basophils % 0.4 % (0.0-0.8); Eosinophils # 0.3 10*3/uL (0.0-0.87); Eosinophils % 4.4 % (0.00-10.9); Hematocrit 27.8 VOL% (35.7-47.0); Hemoglobin 8.8 GM/DL (12.0-16.0); Immature Granulocytes Absolute 0.07 #; Lymphocytes # 1.3 10*3/uL (1.4-4.0); Lymphocytes % 17.5 % (21.3-54.2); Mean Corpuscular HGB Conc 31.7 GM/DL (32-36); Mean Corpuscular Hemoglobin 30 PG (27-34); Mean Corpuscular Volume 94.2 FL (87-102); Mean Platelet Volume 10.8 FL (9.6-12.0); Monocytes # 0.8 10*3/uL (0.11-0.8); Monocytes % 10.5 % (1.7-12.7); Neutrophils # 4.8 10*3/uL (1.4-7.4); Neutrophils % 66.2 % (38.7-73.9); Platelet Count 140 T/CUMM (130-400); Red Blood Count 2.95 MC/CUMM (3.8-5.5); Red Cell Distribution Width 12.4 % (9.3-17.3); White Blood Count 7.3 T/CUMM (4-12)
[2016-10-17] MEDS: LEVOTHYROXINE 75 MCG TABLET PO SCH (06:41)
[2016-10-17] MEDS: CETIRIZINE 10 MG TABLET PO PRN (06:43)
--- NOTE | 2016-10-17 07:23 | Discharge Summary ---
Hospital Course - Hospital Course Hospital Course: Mrs. Daniel was admitted after undergoing an uncomplicated left total knee replacement. She received perioperative DVT and antimicrobial prophylaxis. She received physical therapy. She was discharged home postoperative day #3 in stable condition. She has routine total knee discharge instructions. Specialty Discharge - Follow Up or Referrals Follow up with: Berhane Paulson Jr., MD [Physician] - Discharge Plan - Discharge Data Disposition: Home Health Service Condition at Discharge: Stable Discharge Diet: advance to your usual diet Hygiene: may shower Weight Bearing at Discharge: weight bear as tolerated Driving: other (When not using narcotics) - Discharge Medications Continue Levothyroxine Tab [Synthroid Tab] 75 mcg PO DAILY@0700 Atorvastatin [Lipitor] 20 mg PO BEDTIME Multivitamin [One Daily Multivitamin] 1 tablet PO DAILY Cholecalciferol (Vitamin D3) [Vitamin D3] 1,000 unit PO DAILY Fluticasone 50 Mcg Nasal [place] [Flonase Nasal [place]] 2 spray BOTH NARES DAILY Duloxetine HCl [Cymbalta] 60 mg PO DAILY Losartan Potassium [Cozaar] 50 mg PO BID Calcium (Carb)/Vit D 600-400 [Caltrate 600 + D] 1 tablet PO DAILY cycloSPORINE OPH EMUL [Restasis] 1 drop BOTH EYES Q12HR Cetirizine HCl [ZyrTEC Cap] 10 mg PO DAILY PRN PRN Reason: ALLERGIES Cyclobenzaprine [Flexeril] 5 mg PO BEDTIME Folic Acid 0.8 mg PO DAILY Discontinued Aspirin [Ecotrin] 81 mg PO BEDTIME Etanercept [Enbrel] 60 mg SUBCUT Q7DAY - Follow Up or Referral Follow Up: Berhane Paulson Jr., MD [Physician] - - Forms/Instructions Additional Discharge Instructions: Daily dry dressing changes. Weightbearing as tolerated. CPM for 3 weeks. Arrange walker and bedside commode for home use. Wear TOM hose for 1 month. Discontinue corrine and Steri-Strip wound on October 26, 2016. Follow-up appointment in 4 weeks. Prescription for [place] 7.5 with 30 tablets was written. Take aspirin 325 mg by mouth for 21 days. Restart baby aspirin then. Restart Enbrel in 14 days. Exam - Constitutional Vitals: Period Temp Pulse Resp BP Sys/Luke Pulse Ox Last 24 Hr 97.8 F-98.8 F 80-91 16-19 96-124/43-63 94-97 Discharge Results Labs on day of discharge: Labs from last 24 hours 10/17/16 03:04 WBC 7.3 RBC 2.95 L Hgb 8.8 L Hct 27.8 L MCV 94.2 MCH 30 MCHC 31.7 L RDW 12.4 Plt Count 140 D MPV 10.8 Neut % (Auto) 66.2 Lymph % (Auto) 17.5 L [place] % (Auto) 10.5 Eos % (Auto) 4.4 Baso % (Auto) 0.4 Neut # (Auto) 4.8 Lymph # (Auto) 1.3 L [place] # (Auto) 0.8 Eos # (Auto) 0.3 Baso # (Auto) 0.0 Immature Gran % 1.0 Nucleated RBC % 0.0 Immature Gran # 0.07 Nucleated RBCs # 0.00 DS: Provider Date of admission: 10/14/16 05:38 Primary care physician: Dieudonne Dorsey MD Attending physician on admission: Berhane Paulson Jr., Consults: 10/14/16 11:00 Consult to Case Mgmt/Social Srvs [CONS] Routine Reason for Case Mgmt/Social Srvs: Rehab Home Health Equipment Consult Comment: Deliver CPM Machine to patient when D/C'd from hospital Consult to Occupational Therapy [CONS] Routine Reason for Occupational Therapy: Evaluate and Treat Consult Comment: ADL's Consult to Physical Therapy [CONS] Routine Reason for Physical Therapy: Evaluate and Treat Gait Training Start Therapy: Today 10/14/16 12:31 Consult to Physician [CONS] Routine Comment: Consulting Provider: Olivia Valverde Consulting Provider Notified: Yes When should Consulting Provider be notified: Now Person Notified: derek called Date Notified: 10/14/16 Time Notified: 12:36 Discharging clinician: Berhane Paulson Jr., Expected date of discharge: 10/17/16
[2016-10-17] MEDS: CALCIUM (CARBONATE)/VITAMIN D 600 MG-400 UNIT TABLET PO SCH (09:27)
[2016-10-17] MEDS: FONDAPARINUX 2.5 MG/0.5 ML SYRINGE SUBCUT SCH (09:27)
[2016-10-17] MEDS: CHOLECALCIFEROL 1,000 UNIT TABLET PO SCH (09:27)
[2016-10-17] MEDS: FOLIC ACID 0.4 MG TABLET PO SCH (09:27)
[2016-10-17] MEDS: DOCUSATE SODIUM 100 MG CAPSULE PO SCH (09:27)
[2016-10-17] MEDS: MULTIVITAMIN (CENTRUM) TABLET PO SCH (09:28)
[2016-10-17] MEDS: DULoxetine 30 MG CAPSULE PO SCH (09:28)
[2016-10-17] MEDS: CELECOXIB 200 MG CAPSULE PO SCH (09:28)
[2016-10-17] MEDS: LOSARTAN 50 MG TABLET PO SCH (09:28)
[2016-10-17] MEDS: cycloSPORINE OPH EMUL 1 VIAL BOTH EYES SCH (09:50)
[2016-10-17] MEDS: FLUTICASONE 50 MCG NASAL SPRAY 16 GM BOTTLE BOTH NARES SCH (09:59)
[2016-10-17 11:57] VITALS: BP 125/84
== END 2016-10-17 12:30 | disposition home health service (06) | DRG 470 ==
LOC: N.SDSINP 05:38 → N.3E 12:28
PROVIDERS: ADMIT Orthopaedic Surgery; ATTEND Orthopaedic Surgery